=== PATIENT | male | born 1955 | race Caucasian/White ===

== ENCOUNTER 2016-07-14 05:51 | Inpatient (IN) | payer BC ==
--- NOTE | 2016-07-11 09:35 | GHP ---
DATE OF ADMISSION: 07/14/2016 DATE OF ADMISSION: He will be an a.m. admission for surgery at [facility] on July 14, 2016. PROBLEM: Right hip arthritis. HISTORY OF PRESENT ILLNESS: The patient is a 61-year-old man admitted for a right total hip arthrop lasty. He has had progressive pain in his right hip for the past year. His activities are now very limited. I did his left BHR in 2011. He is doing fine with that. 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 He also has bilateral knee arthritis. His left knee is more painful than the right . He has had Synvisc injections in the past. PAST MEDICAL HISTORY: Overall he is in excellent general health. CURRENT MEDICATIONS: None. DRUG ALLERGIES: None. METAL ALLERGY: None. LATEX ALLERGY: None. SOCIAL HISTORY: The patient is a computer analyst. He does not smoke cigarettes and occasionall y drinks alcohol. He has a female friend at home who will assist him in his recovery. The patient had a serious staph infection in his left elbow 10+ years ago. FAMILY HISTORY: Positive for arthritis. PHYSICAL EXAMINATION: GENERAL: He is a healthy fit-appearing man. VITAL SIGNS: Height 5 feet 11 inches. Weight 190 pounds. BMI 26.5. EYES: The conjunctivae and sclerae are clear. Pupils are r ound and reactive. MOUTH: Good oral hygiene. No loose teeth. CHEST: Clear. HEART: Regular rhy thm. No murmurs. EXTREMITIES: Pertinent findings limited to the right hip. He has full hip exten ambrosio and 105 degrees of flexion. External rotation 20 degrees. Internal rotation 0 degrees. Abduc tion 20 degrees. He has pain at the extremes of motion. IMAGING: Films show advanced degenerative arthritis of the right hip. He is bone on bone. Periphe ral osteophytes are present. His left BHR looks excellent. IMPRESSION ON ADMISSION: 1. Right hip degenerative arthritis. He is prepared for right total hip arthroplasty. 2. Five years status post left BHR with a good result. 3. Bilateral knee arthritis. 4. History of left upper extremity deep venous thrombosis following his BHR surgery in 2011. PLAN: He will undergo a right total hip arthroplasty. The surgery has been described to him includ ing the risks, complications, expectations, and recovery time. I have discussed with him the risk o f dislocation, leg length inequality, infection and sciatic nerve injury. He understands that he is relatively young for a total hip replacement and might need revision surgery in the future. He exp erienced a left neck DVT following his hip surgery 5 years ago. He would prefer to avoid full antic oagulation. I will use the standard aspirin DVT prophylaxis. All his questions have been answered and he consents to surgery. Copy requested to: Dr. Tay Recio, [place] /[id number]/MODL
[~2016-07-14 05:51] MED LIST: ACETAMINOPHEN 325 MG TAB ONE; CEFAZOLIN 2 GM/DEXTROSE/100 ML BAG IV ONE; DEXAMETHASONE 4 MG/ML VIAL ONE; FAMOTIDINE 20 MG TAB ONE; LIDOCAINE 1% 5 ML SDV ONE
[2016-07-14] MEDS ORDERED: LIDOCAINE 1% 5 ML SDV ID PRN (06:10)
[2016-07-14] MEDS ORDERED: LR 1,000 ML IV ONE (06:10)
[2016-07-14] MEDS ORDERED: SKIN ADHESIVE (DERMABOND) 1 EACH TP ONE (06:39)
[2016-07-14] MEDS ORDERED: ceFAZolin 1 GM/5 ML SYR ONE (06:40)
[2016-07-14] MEDS ORDERED: MIDAZOLAM 2 MG/2 ML VIAL ONE (06:57)
[2016-07-14] MEDS ORDERED: CHLORHEXIDINE GLUC HIBICLENS 118 ML BTL TP ONE (07:00)
[2016-07-14] MEDS ORDERED: CEFAZOLIN 2 GM/DEXTR 100 ML IV ONE (07:00)
[2016-07-14] MEDS ORDERED: ROPI/epiNEPH/KETOROLAC JOINT COCKTAIL IU ONE (07:00)
[2016-07-14] MEDS ORDERED: DEXAMETHASONE 4 MG/ML VIAL IVP ONE (07:00)
[2016-07-14] MEDS ORDERED: POVIDONE-IODINE 20 ML in SODIUM CL IRRIG SOLUTION 500 ML IRR ONE (07:00)
[2016-07-14] MEDS ORDERED: FAMOTIDINE 20 MG TAB PO ONE (07:00)
[2016-07-14] MEDS ORDERED: ACETAMINOPHEN 325 MG TAB PO ONE (07:00)
[2016-07-14] MEDS ORDERED: TRANEXAMIC ACID 1,720 MG in NS 100 ML IV ONE (07:00)
[2016-07-14] MEDS ORDERED: PROPOFOL/EMULSION 500 MG/50 ML BOTTLE IV ONE ×2 (07:02→07:58)
[2016-07-14] MEDS ORDERED: fentaNYL 100 MCG/2 ML INJ ONE (07:02)
[2016-07-14] MEDS ORDERED: LIDOCAINE 2% 100 MG/5 ML SYR IVP ONE (07:02)
[2016-07-14] MEDS ORDERED: DEXAMETHASONE 4 MG/ML VIAL ONE (07:06)
[2016-07-14] MEDS ORDERED: ONDANSETRON 4 MG/2 ML VIAL ONE (07:07)
--- NOTE | 2016-07-14 08:52 | POSTOPPROG ---
Post Op Note Date of Operation: 07/14/16 Surgeon: Giovani Titus Tractor Trailer Truck Driver: Bal Anesthesiologist: Bhaskar Anesthesia: IV Sedation, Spinal Post-op Diagnosis: right hip arthritis Procedure: R CRYSTAL Inf/Abcess present in the surg proc area at time of surgery?: No EBL: 100-500
[2016-07-14] MEDS ORDERED: MAGNESIUM HYDROXIDE 30 ML UDCUP PO PRN (09:05)
[2016-07-14] MEDS ORDERED: POLYETHYLENE GLYCOL 3350 17 GM PKT PO PRN (09:05)
[2016-07-14] MEDS ORDERED: CYCLOBENZAPRINE 10 MG TAB PO PRN (09:05)
[2016-07-14] MEDS ORDERED: METOCLOPRAMIDE 10 MG/2 ML VIAL IVP PRN (09:05)
[2016-07-14] MEDS ORDERED: PROMETHAZINE HCL 25 MG SUPPR PR PRN (09:05)
[2016-07-14] MEDS ORDERED: DIPHENOXYLATE/ATROPINE LOMOTIL 1 TAB PO PRN (09:05)
[2016-07-14] MEDS ORDERED: TEMAZEPAM 15 MG CAP PO PRN (09:05)
[2016-07-14] MEDS ORDERED: diphenhydrAMINE 25 MG CAP PO PRN (09:05)
[2016-07-14] MEDS ORDERED: PROMETHAZINE HCL 25 MG/ML INJ IVP PRN (09:05)
[2016-07-14] MEDS ORDERED: ONDANSETRON 4 MG/2 ML VIAL IVP PRN (09:05)
[2016-07-14] MEDS ORDERED: PHARMACY PAIN CONSULT 1 EA MISC PRN (09:05)
[2016-07-14] MEDS ORDERED: LACTULOSE 20 GM/30 ML UDCUP PO PRN (09:05)
[2016-07-14] MEDS ORDERED: ONDANSETRON DISINTEGRATING 4 MG TAB PO PRN (09:05)
[2016-07-14] MEDS ORDERED: BISACODYL 10 MG SUPP PR PRN (09:05)
[2016-07-14] MEDS ORDERED: LR 1,000 ML IV SCH (09:30)
--- NOTE | 2016-07-14 09:45 | GOP ---
DATE OF OPERATION: 07/14/2016 SURGEON: Giovani Titus MD DIRECTOR OF KIDS: Spencer Styles and Quincy Guzman. ANESTHESIA: A combination of Marcaine spinal and IV sedation. ANESTHESIOLOGIST: Dr. Muro. PREOPERATIVE DIAGNOSIS: Right hip advanced degenerative arthritis. POSTOPERATIVE DIAGNOSIS: Right hip advanced degenerative arthritis. PROCEDURE PERFORMED: Right total hip arthroplasty, Oxinium femoral head on highly cross-linked poly ethylene cup liner. FINDINGS: DESCRIPTION OF PROCEDURE: The patient was given 2 g of IV Ancef preoperatively within 60 minutes of surgery. He also received IV tranexamic acid at a dose of 20 mg/kg. [facility] and given spinal anesthesia with Marcaine by Dr. Muro. He was then placed supine a nd given IV sedation. A Arboleda catheter was not used. He wore a WASHINGTON stocking and SCD on the nonoper ative leg. He was rolled to the left lateral decubitus position. The position was secured with the pegboard table attachment. An axillary roll was used and all pressure points were carefully padded . I was careful to lock his pelvis in a rigid vertical position. His perineum was isolated with pl astic adhesive drapes. The right hip and right lower extremity were prepped with ChloraPrep. They were draped free using sterile sheets, stockinette, and Ioban plastic drape. The [employer] Organization time-out was performed to verify the correct surgical side and the cor rect patient identity. The [place] time-out was also performed. I made a 4-5-inch straight oblique posterolateral hip skin incision. The subcutaneous tissues were sharply divided and hemostasis was obtained using electrocautery. His fascia lawrence was identified an d split a short distance along the axis of its fibers. I then curved posteriorly and proximally and split the fascia of his gluteus alena and bluntly split the muscle fibers in line with their orie ntation. A Charnley self-retaining retractor was inserted. His sciatic nerve was located, partiall y exposed and protected throughout the procedure. The external rotators and the posterior hip capsu le were divided as separate layers at the base of the femoral neck, tagged and reflected posteriorly . An 8-inch Steinmann pin was inserted vertically into the ilium superior to the acetabulum. An 8- inch drill bit was inserted vertically into the greater trochanter and parallel to the first pin. T he distance between the 2 was measured for leg length reference. His femoral head was dislocated po steriorly. Severe degenerative changes were present on the femoral head. The femoral neck was oste otomized at the appropriate level and inclination. I was careful to preserve all the posterior capsule and most of the anterior capsule. The remnant o f the damaged labrum was completely excised. I prepared the femur first. This allowed me to tribal judge the natural femoral neck anteversio n. This, in turn, allowed me to later determine the correct amount of cup anteversion. He had quit e a bit more than the usual femoral neck anteversion, particularly for a male. The canal was opened laterally with a box chisel. I reamed and broached sequentially up to a size 15. I used a size 15 stem as a trial stem. I was careful to lateralize adequately. Appropriate retractors were inserted to expose the acetabulum. The acetabulum was reamed sequential ly up to 53 mm. I selected a 54 mm Torres and Nephew R3 solid-backed hemispherical shell. This was tapped securely into place in the proper degree of inclination and anteversion. I used the transver se acetabular ligament and the other acetabular bony landmarks to help me properly orient the cup. He had very good-quality bone and the fixation was very tight. Supplemental screws were not necessa ry. I inserted a screw-in metal dome hole plug. I performed a series of trial reductions to determine length and stability. I concluded that the si ze 15 stem with a +4 mm neck length and a 36 mm head with a flush liner gave me the proper combinati on of appropriate length and good anterior and posterior stability. The flush Torres and Nephew R3 highly cross-linked polyethylene liner was inserted and tapped securel y into place. I selected a Torres and Nephew Synergy stem in a size 15 with standard offset. This w as inserted press-fit and was very tight. I did 1 final trial reduction and confirmed that the +4 m m neck length with a 36 mm head was the proper combination. I selected a Torres and Nephew Oxinium h ead with an outside diameter of 36 mm and a neck length of +4 mm. The head was tapped securely onto the clean trunnion. The acetabulum was irrigated and cleaned, and the hip was reduced 1 final time . He had excellent anterior and posterior stability and appropriate length. 40 mL of the joint anesthetic cocktail were injected into the capsule, the deep musculature and the subcutaneous tissues around the skin edges. The joint was thoroughly irrigated 1 final time with a dilute Betadine solution. His sciatic nerve was reinspected and looked unharmed. The external rota tors and the posterior hip capsule were repaired in separate layers with #2 FiberWire sutures throug h drill holes in the greater trochanter. This provided a very strong posterior capsular and externa l rotator repair. The fascia lawrence was closed first with a couple of interrupted [id number] #2 FiberWire sutures, followed by a running #2 barbed Ethicon Stratafix PDO suture. Subcutaneous tissu es were closed with a running 0 barbed Ethicon Stratafix Monoderm suture. The skin was closed with a running 3-0 barbed Ethicon Stratafix Monoderm subcuticular suture. The skin edges were reapproxim ated and sealed with Dermabond glue. The wound was covered with a strip of Telfa, and everything wa s held in place with a piece of clear plastic Tegaderm. A long-leg WASHINGTON stocking and SCD were applied to his right lower extremity. An abduction pillow was placed between his knees. He was awakened from anesthesia and rolled to the supine position on his [facility]. He was taken to the PACU in satisfactory condition. There were no recognized intr aoperative complications. I used a Torres and Nephew R3 hemispherical solid-backed acetabular shell with an outside diameter of 54 mm. The liner was a Torres and Nephew R3 flush highly cross-linked liner with an inside diameter of 36 mm. The femoral component was a press-fit Torres and Nephew standard offset Synergy stem in s ize 15. The femoral head was a Torres and Nephew Oxinium head with a 36 mm outside diameter and a +4 mm neck length. Spencer Styles and Quincy Guzman acted as surgical assistants. Their assistance was a medical antonietta cohen. Copy requested to: Tay Smith M.D. [facility] [address] [facility] [address] /[id number]/MODL
[2016-07-14] MEDS: KETOROLAC 30 MG/1 ML SDV IVP PRN ×2 (12:05→18:19)
[2016-07-14] MEDS: ACETAMINOPHEN 325 MG TAB PO SCH ×2 (12:05→18:20)
[2016-07-14] MEDS: traMADol 50 MG TAB PO PRN ×2 (12:05→18:20)
[2016-07-14] MEDS ORDERED: ceFAZolin 2 GM/DEXTROSE 100 ML IV SCH (14:00)
[2016-07-14] MEDS: ceFAZolin 2 GM in D5W 100 ML IV SCH ×2 (14:02→21:57)
[2016-07-14] MEDS: TRANEXAMIC ACID 650 MG TAB PO SCH ×3 (14:02→21:56)
[2016-07-14] MEDS: oxyCODONE IR 5 MG TAB PO PRN ×2 (16:27→21:57)
[2016-07-14] MEDS: ASPIRIN 325 MG TAB PO SCH (21:56)
[2016-07-14] MEDS: SENNOSIDES/DOCUSATE SODIUM TAB PO SCH (21:56)
[2016-07-14] MEDS: FAMOTIDINE 20 MG TAB PO SCH (21:57)
[2016-07-15] MEDS: ACETAMINOPHEN 325 MG TAB PO SCH ×2 (00:21→05:21)
[2016-07-15 05:31] LABS: HEMATOCRIT 38.3 % (40.0-51.0); HEMOGLOBIN 13.1 g/dL (13.7-17.5)
--- NOTE | 2016-07-15 07:30 | SOAPPROG ---
SOAP Progress Note Assessment/Plan: Assessment: Afebrile. Mild pain. Has been up and walking in room. Sciatic nerve intact. Dsg is dry. Films look good. H/H is good. Plan:Up with PT. Home later today. Start outpatient PT next week. 07/15/16 07:28 Objective: Vital Signs Temp Pulse Resp BP Pulse Ox 36.3 C 69 16 121/68 H 98 07/15/16 04:17 07/15/16 04:17 07/15/16 04:17 07/15/16 04:17 07/15/16 04:17 Laboratory Results 07/15/16 04:56 07/14/16 07/15/16 07/16/16 05:59 05:59 05:59 Intake Total 3145 Output Total 2650 Balance 495 ICD10 Worksheet Patient Problems: Problems Problem Status Onset Osteoarthritis of right hip Acute
[2016-07-15 07:42] VITALS: BP 111/68; PULSE 62; RESP 18; TEMP 97.7
[2016-07-15] MEDS: oxyCODONE IR 5 MG TAB PO PRN ×2 (07:46→10:51)
[2016-07-15] MEDS ORDERED: MULTIVITAMINS 1 EACH TAB PO SCH (09:00)
[2016-07-15] MEDS ORDERED: OMEGA-3 FATTY ACIDS 1,000 MG CAP PO SCH (09:00)
[2016-07-15] MEDS ORDERED: FERROUS SULFATE 140 MG TAB.ER PO SCH (09:00)
[2016-07-15 09:25] VITALS: O2SAT 96
[2016-07-15] MEDS: ASPIRIN 325 MG TAB PO SCH (09:27)
[2016-07-15] MEDS: SENNOSIDES/DOCUSATE SODIUM TAB PO SCH (09:27)
[2016-07-15] MEDS: FAMOTIDINE 20 MG TAB PO SCH (09:28)
[2016-07-15] MEDS: TRANEXAMIC ACID 650 MG TAB PO SCH (09:30)
--- NOTE | 2016-07-15 09:55 | GDS ---
ADMISSION DIAGNOSIS: Right hip degenerative arthritis. DISCHARGE DIAGNOSIS: Right hip degenerative arthritis. OPERATIONS PERFORMED: 07/14/2016, right total hip arthroplasty. POSTOPERATIVE COMPLICATIONS: None. CONDITION ON DISCHARGE: Improved. DESCRIPTION OF HOSPITAL COURSE: The patient was admitted to the hospital the morning of surgery. H is admission CBC was normal. The same day under a combination of Marcaine spinal and IV sedation, juan carlos grant underwent a right total hip arthroplasty. Postoperatively, he was treated with multimodal DVT pro phylaxis including aspirin. On the 1st postoperative day, his hemoglobin and hematocrit were 13.1 a nd 38.3. He was seen by Physical Therapy and made excellent progress with ambulation and stairs. B y the time of discharge, he was afebrile, his wound was clean and dry, and he was independent walkin g. DISPOSITION: The patient is discharged to his home. He will go to outpatient physical therapy. He may progress to full weightbearing as tolerated on the right. Use an abduction pillow in bed for 3 weeks. Use WASHINGTON stockings for 1 week. Continue aspirin 325 mg daily for 21 days. He has prescript ions for oxycodone, tramadol and Zofran. I will see him back in the office on August 02, 2016. If t here are any problems, he is to call me at the office. Copy requested to: Tay Anthony M.D. [place] /[id number]/MODL
== END 2016-07-15 11:27 | disposition home or self-care (01) | DRG 470 ==
LOC: F3N 05:51
PROVIDERS: ADMIT Orthopaedic Surgery; ATTEND Orthopaedic Surgery
PROC: 0SR902Z Replacement of Right Hip Joint with Metal on Polyethylene Synthetic Substitute, Open Approach (ICD-10-PCS; principal; 2016-07-14 07:11)
DX: M16.11 Unilateral primary osteoarthritis, right hip (principal); Z96.642 Presence of left artificial hip joint; M17.0 Bilateral primary osteoarthritis of knee; Z86.718 Personal history of other venous thrombosis and embolism
CPT/HCPCS: 97110-GP; 97116-GP; 97161-GP; 97165-GO; 97535-GO; J0171; J0690; J1100; J1885; J2001; J2250; J2405; J2704; J2795; J3010